=== PATIENT | female | born 1990 | race Caucasian/White ===

== ENCOUNTER 2017-06-12 09:38 | Emergency (ER) | payer OTHER, MEDICAID ==
[~2017-06-12] VITALS: Ht 152.4 cm; Wt 76.2 kg
[~2017-06-12 09:38] MED LIST: CELEXA 10 MG TA10 MG PO; IBUPROFEN 800800 M1 PO; KEFLEX500 MG PO; NOHOMEMEDICATIONS; PHENERGAN 25 MG25 M1 PO; PROVERA10 MG PO; TRINATE TABLET1 TAB PO; ZOFRAN ODT4 MG PO
[2017-06-12 09:46] VITALS: BP 118/76
[2017-06-12] MEDS ORDERED: CORTISPORIN OTI10 M2 OTIC (10:15)
== END 2017-06-12 10:20 | disposition home or self-care (01) ==
LOC: M.ERS 09:38
DX: T16.2XXA Foreign body in left ear, initial encounter (principal); F17.210 Nicotine dependence, cigarettes, uncomplicated; X58.XXXA Exposure to other specified factors, initial encounter; Y93.89 Activity, other specified; Y92.89 Other specified places as the place of occurrence of the external cause; Y99.8 Other external cause status

== ENCOUNTER 2017-10-14 19:49 | Emergency (ER) | payer OTHER, MEDICAID ==
[~2017-10-14] VITALS: Ht 152.4 cm; Wt 78.0 kg
[~2017-10-14 19:49] MED LIST changes: +CORTISPORIN OTI10 M2 OTIC
[2017-10-14] MEDS ORDERED: AMOXICILLIN 50500 MG PO (20:52)
[2017-10-14 21:30] VITALS: BP 112/63
== END 2017-10-14 21:30 | disposition home or self-care (01) ==
LOC: M.ERS 19:49
DX: O99.511 Diseases of the respiratory system complicating pregnancy, first trimester (principal); J02.0 Streptococcal pharyngitis; F17.210 Nicotine dependence, cigarettes, uncomplicated; Z3A.00 Weeks of gestation of pregnancy not specified

== ENCOUNTER 2017-10-17 18:31 | Emergency (ER) | payer OTHER, MEDICAID ==
[~2017-10-17] VITALS: Ht 152.4 cm; Wt 78.0 kg
[~2017-10-17 18:31] MED LIST changes: +AMOXICILLIN 50500 MG PO
[2017-10-17] MEDS ORDERED: IBUPROFEN 800800 M1 PO (18:56)
[2017-10-17] MEDS ORDERED: AMOXICILLIN 50500 MG PO ×3 (19:31→19:34)
[2017-10-17 19:44] VITALS: BP 110/68
== END 2017-10-17 19:45 | disposition home or self-care (01) ==
LOC: M.ERS 18:31
DX: O26.891 Other specified pregnancy related conditions, first trimester (principal); J02.0 Streptococcal pharyngitis; O99.331 Smoking (tobacco) complicating pregnancy, first trimester; Z3A.12 12 weeks gestation of pregnancy